=== PATIENT | male | born 1960 | race Caucasian/White ===

== ENCOUNTER 2021-10-25 14:33 | Emergency (ER) | payer SELFPAY ==
[2021-10-25] MEDS ORDERED: IV NORMAL SALINE 1000ML BAG 1,000 ML IV SCH (14:45)
[2021-10-25] MEDS ORDERED: HYDROmorphone 2 MG/ML INJ. IVP ONE ×2 (14:45→17:15)
[2021-10-25 15:07] LABS: CALCIUM 8.5 mg/dL (8.5-10.1); CREATININE 1.1 mg/dL (0.7-1.3); GFR 67.6; POTASSIUM 4.1 mmol/L (3.5-5.1)
[2021-10-25 15:14] LABS: ALBUMIN 3.3 g/dL (3.4-5.0); TOTAL BILIRUBIN 1.2 mg/dL (0.2-1.0); TOTAL PROTEIN 6.6 g/dL (6.4-8.2)
[2021-10-25] MEDS ORDERED: LIDOCAINE 1%/EPI 1:100,000 20 ML VIAL. INJ ONE (15:15)
--- NOTE | 2021-10-25 15:15 | RAD ---
Left humerus one view HISTORY: Fracture Single view was taken of the left humerus. There is a transverse fracture through the mid humerus wit h slight angulation and a cortex width of displacement. There is a spiral fracture component at the p roximal humerus without displacement. IMPRESSION: 1. Comminuted fracture left humerus. Electronically signed by: Oscar Vaz MD (10/25/2021 3:13 PM) [facility]
[2021-10-25 15:18] LABS: BASO % 0 % (0-3); EOS # 0.1 x10^3/uL (0.0-0.7); EOS % 1 % (0-3); HEMATOCRIT 37.2 % (39.0-53.0); HEMOGLOBIN 12.5 g/dL (13.0-17.5); LYMPH # 0.7 x10^3/uL (1.0-4.8); LYMPH % 8 % (24-48); MEAN CORPUSCULAR HEMOGLOBIN 32 pg (25-35); MEAN CORPUSCULAR HGB CONC 33 g/dL (31-37); MEAN CORPUSCULAR VOLUME 94 fL (79-100); MONO # 0.6 x10^3/uL (0.0-1.1); MONO % 6 % (0-9); NEUT # 8.1 x10^3/uL (1.8-7.7); NEUT % 85 % (31-73); PLATELET COUNT 242 x10^3/uL (140-400); RED BLOOD COUNT 3.95 x10^6/uL (4.30-5.70); RED CELL DISTRIBUTION WIDTH 14.3 % (11.5-14.5); WHITE BLOOD COUNT 9.5 x10^3/uL (4.0-11.0)
--- NOTE | 2021-10-25 16:35 | PHYS DOC ---
Past Medical History Past Medical History: GERD General Adult EDM: Chief Complaint: TRAUMA ACTIVATION HPI: HPI: Patient is a 61 year old male with past medical history of heavy alcohol use. He presents after a refrigerator fell on him while he was moving the refrigerator with a friend. He states that the friend lost balance on the deondre and the refrigerator fell on him and he became pinned against a wall. He states he did not hit his head or neck. He has no head or neck pain at this time. His right lower erickson is lacerated. He has a deformity on his left upper extremity in the midshaft humerus area. He is complaining about left arm pain. He has no other complaints besides right erickson pain and left arm pain. He is alert and oriented, afebrile. Vital signs normal. Review of Systems: Review of Systems: Constitutional: Denies fever or chills. [] Eyes: Denies change in visual acuity. [] HENT: Denies nasal congestion or sore throat. [] Respiratory: Denies cough or shortness of breath. [] Cardiovascular: Denies chest pain or edema. [] GI: no abdominal pain, no nausea, vomiting, bloody stools or diarrhea. [] : Denies dysuria. [] Musculoskeletal: Denies back pain or joint pain. [] Integument: Denies rash. [] Neurologic: Denies headache, focal weakness or sensory changes. [] Endocrine: Denies polyuria or polydipsia. [] Lymphatic: Denies swollen glands. [] Psychiatric: Denies depression or anxiety. [] Heart Score: C/O Chest Pain: No Risk Factors: Risk Factors: DM, Current or recent (<one month) smoker, HTN, HLP, family history of CAD, obesity. Risk Scores: Score 0 - 3: 2.5% MACE over next 6 weeks - Discharge Home Score 4 - 6: 20.3% MACE over next 6 weeks - Admit for Clinical Observation Score 7 - 10: 72.7% MACE over next 6 weeks - Early Invasive Strategies Current Medications: Current Medications Medications (Trade) Dose Ordered Sig/Keaton Start Time Stop Time Status Last Admin Dose Admin Hydromorphone HCl (Dilaudid) 1 mg 1X ONCE 10/25/21 14:45 10/25/21 15:07 DC 10/25/21 15:07 1 MG Lidocaine/ Epinephrine (LIDOCAINE 1%-EPI 1:100,000 Multi-Dose) 20 ml 1X ONCE 10/25/21 15:15 10/25/21 15:16 DC 10/25/21 15:31 20 ML Sodium Chloride 1,000 ml @ 1,000 mls/hr Q1H 10/25/21 14:45 10/25/21 15:44 DC 10/25/21 14:45 1,000 MLS/HR Allergies: Allergies: Allergies Coded Allergies Type Severity Reaction Last Updated Verified No Known Drug Allergies 10/25/21 No Physical Exam: PE: Constitutional: Well developed, well nourished, no acute distress, non-toxic appearance. [] HENT: Normocephalic, atraumatic, bilateral external ears normal, oropharynx moist, no oral exudates, nose normal. [] Eyes: PERRLA, EOMI, conjunctiva normal, no discharge. [] Neck: Normal range of motion, no tenderness, supple, no stridor. [] Cardiovascular:Heart rate regular rhythm, no murmur [] Lungs & Thorax: Bilateral breath sounds clear to auscultation [] Abdomen: Bowel sounds normal, soft, no abdominal tenderness, no masses, no pulsatile masses. [] Skin: Right lower erickson laceration 3 cm past the dermis. Back: No tenderness, no CVA tenderness. [] Extremities: Left upper extremity with tenderness to palpation, obvious deformity in mid shaft humerus. Neurologic: Alert and oriented X 3, normal motor function, normal sensory function, no focal deficits noted. [] Psychologic: Affect normal, judgement normal, mood normal. [] Current Patient Data: Labs: Laboratory Tests Test 10/25/21 14:50 White Blood Count 9.5 x10^3/uL (4.0-11.0) Red Blood Count 3.95 x10^6/uL (4.30-5.70) L Hemoglobin 12.5 g/dL (13.0-17.5) L Hematocrit 37.2 % (39.0-53.0) L Mean Corpuscular Volume 94 fL (79-100) Mean Corpuscular Hemoglobin 32 pg (25-35) Mean Corpuscular Hemoglobin Concent 33 g/dL (31-37) Red Cell Distribution Width 14.3 % (11.5-14.5) Platelet Count 242 x10^3/uL (140-400) Neutrophils (%) (Auto) 85 % (31-73) H Lymphocytes (%) (Auto) 8 % (24-48) L Monocytes (%) (Auto) 6 % (0-9) Eosinophils (%) (Auto) 1 % (0-3) Basophils (%) (Auto) 0 % (0-3) Neutrophils # (Auto) 8.1 x10^3/uL (1.8-7.7) H Lymphocytes # (Auto) 0.7 x10^3/uL (1.0-4.8) L Monocytes # (Auto) 0.6 x10^3/uL (0.0-1.1) Eosinophils # (Auto) 0.1 x10^3/uL (0.0-0.7) Basophils # (Auto) 0.0 x10^3/uL (0.0-0.2) Sodium Level 141 mmol/L (136-145) Potassium Level 4.1 mmol/L (3.5-5.1) Chloride Level 105 mmol/L (98-107) Carbon Dioxide Level 25 mmol/L (21-32) Anion Gap 11 (6-14) Blood Urea Nitrogen 22 mg/dL (8-26) Creatinine 1.1 mg/dL (0.7-1.3) Estimated GFR (Cockcroft-Gault) 67.6 BUN/Creatinine Ratio 20 (6-20) Glucose Level 102 mg/dL (70-99) H Calcium Level 8.5 mg/dL (8.5-10.1) Total Bilirubin 1.2 mg/dL (0.2-1.0) H Aspartate Amino Transferase (AST) 27 U/L (15-37) Alanine Aminotransferase (ALT) 17 U/L (16-63) Alkaline Phosphatase 72 U/L (46-116) Total Protein 6.6 g/dL (6.4-8.2) Albumin 3.3 g/dL (3.4-5.0) L Albumin/Globulin Ratio 1.0 (1.0-1.7) Ethyl Alcohol Level 66 mg/dL (0-10) H Laboratory Tests 10/25/21 14:50 Laboratory Tests 10/25/21 14:50 Vital Signs: Vital Signs Date Time Temp Pulse Resp B/P (MAP) Pulse Ox O2 Delivery O2 Flow Rate FiO2 4/15/22 15:07 26 100 Room Air Radiology/Procedures: Radiology/Procedures: Left upper extremity x-ray with midshaft comminuted mildly displaced humerus fracture Impression: 61-year-old male with past medical history of alcohol abuse presents with left midshaft humerus fracture as well as right lower erickson laceration needing repair. Course & Med Decision Making: Course & Med Decision Making Pertinent Labs and Imaging studies reviewed. (See chart for details) 61-year-old male with right lower erickson laceration as well as left upper extremity humerus midshaft fracture. I spoke with orthopedics regarding midshaft humerus fracture, they recommended posterior long splint of the left upper extremity with a sling as well as follow-up in several days with orthopedics outpatient. I offered the patient admission for pain control and monitoring since patient is known to be a alcohol user, he stated that he would prefer to return home and take care of himself, he stated he felt confident he would be able to take care of himself. He stated that he will need some pain control but otherwise feels well. Patient is doing well, he states he will follow-up with orthopedics next week. All questions answered, patient stable at the time of discharge. Laceration repair note Performed by myself, Dr. Booker Procedure Name: Laceration Repair Indication: Reduce risk of infection Location: Right erickson Pre-Procedure Diagnosis: Laceration Post-Procedure Diagnosis: Repaired Laceration Informed consent was obtained before procedure started. PROCEDURE: The appropriate timeout was taken. The area was prepped and draped in the usual sterile fashion. Local anesthesia was achieved using 3cc of Lidocaine 1% with epinephrine. The wound was copiously irrigated. 3-0 Ethilon interrupted sutures were placed. Estimated blood loss was less than 0.5 mL. A dressing was applied to the area and anticipatory guidance, as well as standard post-procedure care, was explained. Return precautions are given. The patient tolerated the procedure well without complications. Follow-up visit set for suture removal and evaluation of the laceration in approximately 10 days Aung Disclaimer: Dragon Disclaimer: This electronic medical record was generated, in whole or in part, using a voice recognition dictation system. Departure Departure Referrals: NO PCP (PCP) HAYDER BOOKER MD Oct 25, 2021 16:35
[2021-10-25] MEDS ORDERED: BACITRACIN TOPICAL OINT PACKET. TP ONE ×2 (17:07→17:15)
[2021-10-25] MEDS ORDERED: DIPHTH,PERTUSS(ACELL),TET TOX 0.5 ML DISP.SYRIN. VAX IM ONE ×2 (17:07→17:15)
[2021-10-25] MEDS ORDERED: HYDR-3068 PO ×2 (17:08→17:13)
[2021-10-25 17:17] VITALS: BP 141/80
[2021-10-26] MEDS ORDERED: HYDR-2761 PO (06:11)
== END 2021-10-25 21:19 | disposition home or self-care (01) ==
LOC: ER 14:34
DX: S42.302A Unspecified fracture of shaft of humerus, left arm, initial encounter for closed fracture (principal); S81.811A Laceration without foreign body, right lower leg, initial encounter; K21.9 Gastro-esophageal reflux disease without esophagitis; W20.8XXA Other cause of strike by thrown, projected or falling object, initial encounter; Y93.89 Activity, other specified; Y92.89 Other specified places as the place of occurrence of the external cause; Y99.8 Other external cause status
CPT/HCPCS: 12002; 29105; 36415; 73060; 80053; 85025; 90471; 90715; 96361; 96374; 96376; 99285; A4565; G0480; J1170; J3490; J7030; 96375; 99284-25